=== PATIENT | female | born 1935 | race Caucasian/White ===

== ENCOUNTER 2017-11-04 18:55 | Emergency (ER) | payer MEDICARE, MEDICAID ==
[2017-11-04 19:16] VITALS: TEMP 97.8
[2017-11-04] MEDS ORDERED: Iohexol 240 (50 ml) ONE (19:29)
--- NOTE | 2017-11-04 19:51 | ED PDOC ---
Arrival/HPI - General Chief Complaint: Abdominal Pain Time Seen by Provider: 11/04/17 19:21 Historian: Patient - History of Present Illness Narrative History of Present Illness (Text): 11/04/17 19:46 A 82 year old female, whose past medical history includes hypertension and hyperlipidemia, presents to the emergency department complaining of bilateral lower abdominal pain. Patient reports similar pain 6 months ago, she was diagnosed with diverticulitis and discharged home on antibiotics. She reports the same pain returned a few days ago. Patient denies any fever, chills, nausea , vomiting, diarrhea, chest pain, shortness of breath or any other complaints. Time/Duration: Other (few days) Past Medical History - Provider Review Nursing Documentation Reviewed: Yes - Cardiac Hx Cardiac Disorders: Yes Hx Hypertension: Yes - Pulmonary Hx Respiratory Disorders: Yes Hx Chronic Obstructive Pulmonary Disease (COPD): Yes - Neurological Hx Neurological Disorder: No - HEENT Hx HEENT Disorder: No - Renal Hx Renal Disorder: No - Endocrine/Metabolic Hx Endocrine Disorders: No - Hematological/Oncological Hx Blood Disorders: No - Integumentary Hx Dermatological Disorder: No - Musculoskeletal/Rheumatological Hx Musculoskeletal Disorders: Yes Hx Arthritis: Yes - Gastrointestinal Hx Gastrointestinal Disorders: Yes - Genitourinary/Gynecological Hx Genitourinary Disorders: No - Psychiatric Hx Psychophysiologic Disorder: Yes Hx Anxiety: Yes Hx Substance Use: No - Surgical History Hx Appendectomy: Yes Family/Social History - Physician Review Nursing Documentation Reviewed: Yes Family/Social History: No Known Family HX Smoking Status: Former Smoker Hx Alcohol Use: No Hx Substance Use: No Allergies/Home Meds Allergies/Adverse Reactions: Allergies No Known Allergies Allergy (Verified 11/04/17 19:09) Review of Systems - Physician Review All systems were reviewed & negative as marked: Yes - Review of Systems Constitutional: absent: Fevers, Night Sweats Respiratory: absent: SOB Cardiovascular: absent: Chest Pain Gastrointestinal: Abdominal Pain (bilateral lower abdomen). absent: Diarrhea, Nausea, Vomiting Physical Exam Vital Signs Reviewed: Yes Vital Signs Temp Pulse Resp BP Pulse Ox 11/04/17 22:25 59 L 18 142/74 100 11/04/17 19:10 97.8 F 56 L 17 134/85 95 Temperature: Afebrile Blood Pressure: Normal Pulse: Bradycardic Respiratory Rate: Normal Appearance: Positive for: Well-Appearing, Non-Toxic, Comfortable, Other ( Morbidly obese female) Pain Distress: None Mental Status: Positive for: Alert and Oriented X 3 - Systems Exam Head: Present: Atraumatic, Normocephalic Pupils: Present: PERRL Extroacular Muscles: Present: EOMI Conjunctiva: Present: Normal Mouth: Present: Moist Mucous Membranes Neck: Present: Normal Range of Motion Respiratory/Chest: Present: Clear to Auscultation, Good Air Exchange. No: Respiratory Distress, Accessory Muscle Use Cardiovascular: Present: Regular Rate and Rhythm, Normal S1, S2. No: Murmurs Abdomen: Present: Tenderness (bilateral lower quadrant tenderness), Normal Bowel Sounds. No: Distention, Peritoneal Signs, Rebound, Guarding Back: Present: Normal Inspection Upper Extremity: Present: Normal Inspection. No: Cyanosis, Edema Lower Extremity: Present: Normal Inspection. No: Edema Neurological: Present: GCS=15, CN II-XII Intact, Speech Normal Skin: Present: Warm, Dry, Normal Color. No: Rashes Psychiatric: Present: Alert, Oriented x 3, Normal Insight, Normal Concentration Medical Decision Making ED Course and Treatment: 11/04/17 19:46 Impression: A 82 year old female with bilateral lower abdominal pain Plan: -- Abdomen and pelvis CT -- Labs -- Blood and Urine culture -- Urinalysis -- Reassess and disposition Progress Notes: CT Abdomen and Pelvis With Intravenous Contrast EXAM DATE/TIME: 11/04/2017 7:22 PM Dictated and Authenticated by: Alexa Garcia MD 11/04/2017 10:50 PM Eastern Time ([place] & [place]) IMPRESSION: Distal descending colon diverticulitis, no abscess or free air; mildly prominent uterus and endometrium for patient's age. Additional nonemergent findings as described above. - Lab Interpretations Lab Results: 11/04/17 19:41 11/04/17 19:41 Lab Results 11/04/17 21:16: Urine Color Yellow, Urine Appearance Clear, Urine pH 6.0, Ur Specific [place] 1.010, Urine Protein Negative, Urine Glucose (UA) Negative, Urine Ketones Negative, Urine Blood Negative, Urine Nitrate Negative, Urine Bilirubin Negative, Urine Urobilinogen 0.2, Ur Leukocyte Esterase Negative 11/04/17 19:41: Sodium 143, Chloride 101, Potassium 4.2, Carbon Dioxide 33, Anion Gap 13, BUN 13, Creatinine 0.8, Est GFR ( Amer) > 60, Est GFR (Non- Af Amer) > 60, Random Glucose 115 H, Calcium 9.4, Total Bilirubin 1.0, AST 27, ALT 22, Alkaline Phosphatase 60, Total Protein 8.0, Albumin 4.1, Globulin 3.9, Albumin/Globulin Ratio 1.1, Lipase 31 11/04/17 19:41: pO2 48, VBG pH 7.32, VBG pCO2 68.0 H*, VBG HCO3 35.0 H, VBG Total CO2 37.1 H, VBG O2 Sat (Calc) 83.4 H, VBG Base Excess 6.5 H, VBG Potassium 4.2, Sodium 139.0, Chloride 103.0, Glucose 112 H, Lactate 1.2, FiO2 21.0, Venous Blood Potassium 4.2 11/04/17 19:41: PT 11.6, INR 1.02 11/04/17 19:41: WBC 6.4, RBC 4.43, Hgb 13.3, Hct 40.7, MCV 91.9, MCH 30.0, MCHC 32.7, RDW 14.0, Plt Count 240, MPV 9.6, Gran % 57.1, Lymph % (Auto) 25.1, [place] % (Auto) 7.2 H, Eos % (Auto) 10.3 H, Baso % (Auto) 0.3, Gran # 3.66, Lymph # ( Auto) 1.6, [place] # (Auto) 0.5, Eos # (Auto) 0.7, Baso # (Auto) 0.02 I have reviewed the lab results: Yes - RAD Interpretation Radiology Orders: 11/04/17 19:22 ABD PELVIS PO & IV CONTRAST [CT] Stat - Medication Orders Current Medication Orders: Levofloxacin (Levaquin) 750 mg PO STAT STA PRN Reason: Protocol Stop: 11/04/17 23:06 Metronidazole (Flagyl) 500 mg PO STAT STA PRN Reason: Protocol Stop: 11/04/17 23:06 Disposition/Present on Arrival - Present on Arrival Any Indicators Present on Arrival: No History of DVT/PE: No History of Uncontrolled Diabetes: No Urinary Catheter: No History of Decub. Ulcer: No History Surgical Site Infection Following: None - Disposition Have Diagnosis and Disposition been Completed?: Yes Diagnosis: Acute diverticulitis of intestine Disposition: HOME/ ROUTINE Disposition Time: 23:08 Patient Plan: Discharge Condition: GOOD Discharge Instructions (ExitCare): Diverticulitis (DC) Additional Instructions: Mrs Rudd - Please do not eat any seeds or nuts. Return to us if you are getting worse rather than better. Eat as much yogurt as possible to replace the good bacteria that the antibiotics kill. Chuck- Dr. Agus Parks Prescriptions: Levofloxacin [Levaquin] 500 mg PO TID #30 tablet levoFLOXacin [Levaquin] 750 mg PO DAILY #10 tab [facility] - Follow up with primary Forms: [employer] (Italian)
[2017-11-04 19:56] LABS: BASO # 0.02 K/mm3 (0.0-2.0); BASO % 0.3 % (0.0-3.0); EOS # 0.7 (0.0-0.7); EOS % 10.3 % (1.5-5.0); GRAN # 3.66 (1.4-6.5); GRAN % 57.1 % (50.0-68.0); HEMOGLOBIN 13.3 g/dL (12.0-16.0); LYMPH # 1.6 (1.2-3.4); LYMPH % 25.1 % (22.0-35.0); MEAN CELL VOLUME 91.9 fl (80.0-105.0); MEAN CORPUSCULAR HGB CONC 32.7 g/dl (31.0-37.0); MEAN PLATELET VOLUME 9.6 fl (7.0-11.0); MONO # 0.5 (0.1-0.6); MONO % 7.2 % (1.0-6.0); RBC 4.43 10^6/uL (3.5-6.1); WHITE BLOOD COUNT 6.4 10^3/ul (4.5-11.0)
[2017-11-04 20:00] LABS: VENOUS BLOOD GAS BASE EXCESS 6.5 mmol/L (0.0-2.0); VENOUS BLOOD GAS PO2 48 mm/Hg (30-55); VENOUS BLOOD PH 7.32 (7.32-7.43)
[2017-11-04 20:05] LABS: ALB/GLOB RATIO 1.1 (1.1-1.8); ALBUMIN 4.1 g/dL (3.0-4.8); ALT/SGPT 22 U/L (7-56); AST/SGOT 27 U/L (14-36); BLOOD UREA NITROGEN 13 mg/dL (7-21); CALCIUM 9.4 mg/dL (8.4-10.5); GFR AFRICAN-AMERICAN > 60; GFR NON-AFRICAN AMERICAN > 60; LIPASE 31 U/L (23-300)
[2017-11-04 20:06] LABS: INR 1.02 (0.93-1.08); PROTHROMBIN TIME 11.6 SECONDS (9.4-12.5)
[2017-11-04 21:35] LABS: URINE BILIRUBIN NEGATIVE (NEGATIVE); URINE BLOOD NEGATIVE (NEGATIVE); URINE GLUCOSE (UA) NEGATIVE (NEGATIVE); URINE LEUKOCYTE ESTERASE NEGATIVE Leu/uL (NEGATIVE); URINE PROTEIN NEGATIVE mg/dL (<30 mg/dL); URINE UROBILINOGEN 0.2 E.U./dL (<1 E.U./dL)
[2017-11-04 21:42] LABS: URINE APPEARANCE CLEAR (CLEAR); URINE COLOR YELLOW (YELLOW)
[2017-11-04 22:25] VITALS: RESP 18; O2SAT 100
--- NOTE | 2017-11-04 22:51 | CT ---
EXAM: CT Abdomen and Pelvis With Intravenous Contrast EXAM DATE/TIME: 11/04/2017 7:22 PM CLINICAL HISTORY: 82 years old, female; Pain; Abdominal pain; Localized; Lower; Prior surgery; Surgery type: Appendectomy; Additional info: Lower abdominal pain TECHNIQUE: Axial computed tomography images of the abdomen and pelvis with intravenous contrast. All CT scans at this facility use one or more dose reduction techniques, viz.: automated exposure control; ma/kV adjustment per patient size (including targeted exams where dose is matched to indication; i.e. head); or iterative reconstruction technique. Coronal and sagittal reformatted images were created and reviewed. CONTRAST: 140 mL of omni 350 administered intravenously. COMPARISON: There are no prior studies for comparison. FINDINGS: Lower thorax: The heart is mildly enlarged. There is elevation of right diaphragm. There is atelectasis and scarring at the lung bases. ABDOMEN: Liver: There is fatty infiltration of the liver. Gallbladder and bile ducts: Gallbladder is partially distended. There is prominence of the common duct. Pancreas: Pancreas is atrophic and fatty replaced. Spleen: Spleen is unremarkable. There is an accessory spleen in the left upper quadrant. Adrenals: unremarkable Kidneys and ureters: unremarkable Stomach and bowel: Stomach is incompletely distended which accentuates the gastric wall.Bowel rotation is normal. There is no small bowel obstruction. Terminal ileum is unremarkable.Colon is incompletely distended which limits evaluation. There is scattered diverticulosis most extensive in the sigmoid. There is mild inflammation and edema adjacent to the distal descending colon. Appendix: Surgically absent PELVIS: Bladder: unremarkable Reproductive: Uterus is anteflexed. There is mild prominence uterus and endometrium for patient's age. Adnexa are unremarkable. ABDOMEN and PELVIS: Intraperitoneal space: There is no free air or free fluid. Bones/joints: There are degenerative changes in the osseus structures. There is sacralization of the L5 segment. No pathologic adenopathy There is scoliosis. Soft tissues: There is a fat-containing umbilical hernia. Vasculature: There are multiple phleboliths. There are vascular calcifications. Lymph nodes: There is no pathologic adenopathy. IMPRESSION: Distal descending colon diverticulitis, no abscess or free air; mildly prominent uterus and endometrium for patient's age Additional nonemergent findings as described above.
[2017-11-04] MEDS ORDERED: levoFLOXacin 750 MG TAB PO STA (23:05)
[2017-11-04 23:29] VITALS: BP 132/89; PULSE 61
== END 2017-11-04 23:26 | disposition home or self-care (01) ==
LOC: ED 18:55
DX: K57.92 Diverticulitis of intestine, part unspecified, without perforation or abscess without bleeding (principal); I10 Essential (primary) hypertension; Z87.891 Personal history of nicotine dependence
CPT/HCPCS: 74177; 80053; 81003; 82803; 83690; 85025; 85610; 87040; 87086; 99284; Q9966; Q9967